=== PATIENT | female | born 1945 | race Caucasian/White ===

== ENCOUNTER → 2016-12-02 | Outpatient (CLI) | payer MEDICARE, OTHER | END | disposition home or self-care (01) | LOC: PCVCIMAG 10:14 | PROVIDERS: ATTEND Internal Medicine Cardiovascular Disease | DX: I65.23 Occlusion and stenosis of bilateral carotid arteries (principal); I25.10 Atherosclerotic heart disease of native coronary artery without angina pectoris; R42 Dizziness and giddiness; I25.5 Ischemic cardiomyopathy; I10 Essential (primary) hypertension; E78.00 Pure hypercholesterolemia, unspecified; J44.9 Chronic obstructive pulmonary disease, unspecified; R53.1 Weakness; R07.9 Chest pain, unspecified | CPT/HCPCS: 36415; 80061; 93005; 93880; G0463 ==

== ENCOUNTER → 2016-12-13 | Outpatient (CLI) | payer OTHER ==
[~2016-12-13] MED LIST: REGADENOSON 0.4 MG/5 ML DISP.SYRIN. IV ONE
== END | disposition home or self-care (01) ==
LOC: PCVCIMAG 09:02
PROVIDERS: ATTEND Internal Medicine Cardiovascular Disease
DX: I25.10 Atherosclerotic heart disease of native coronary artery without angina pectoris (principal); R07.9 Chest pain, unspecified; J44.9 Chronic obstructive pulmonary disease, unspecified; R94.31 Abnormal electrocardiogram [ECG] [EKG]; Z95.5 Presence of coronary angioplasty implant and graft
CPT/HCPCS: 78452; 93017; A9500; J2785

== ENCOUNTER → 2016-12-23 | Outpatient (CLI) | payer OTHER ==
[~2016-12-23] MED LIST changes: +0.9 % SODIUM CHLORIDE 10 ML VIAL ONE; +CEFAZOLIN 2GM PREMIX 0 ML IV ONE; +DIAZEPAM 10 MG TABLET. ONE; +FENTANYL PF 100 MCG/2 ML VIAL. ONE; +HYDROCODONE/APAP 5/325MG TABLET. ONE; +IOHEXOL 300 MG/ML 100ML VIAL. ONE; +IOHEXOL 350 MG/ML 100ML VIAL. ONE; +IV NORMAL SALINE 1000ML BAG 1,000 ML ONE; +LIDOCAINE 1% Multi-Dose 20 ML VIAL. ONE; +MIDAZOLAM HCL/PF 2 MG/2 ML VIAL. ONE; -REGADENOSON 0.4 MG/5 ML DISP.SYRIN. IV ONE; +hydrALAZINE 20 MG/ML VIAL. ONE
== END | disposition home or self-care (01) ==
LOC: PCVCINTER 12:01
PROVIDERS: ATTEND Nuclear Medicine Nuclear Cardiology
DX: I65.22 Occlusion and stenosis of left carotid artery (principal); I72.0 Aneurysm of carotid artery; I70.1 Atherosclerosis of renal artery; T82.898D Other specified complication of vascular prosthetic devices, implants and grafts, subsequent encounter
CPT/HCPCS: 36223; 36225; 36252; 75630; 76937; 93458; C1751; C1760; C1769; C1894; J2250; J3010; J7030; Q9967; J0360; J0690

== ENCOUNTER → 2017-03-18 | Outpatient (CLI) | payer OTHER | END | disposition home or self-care (01) | LOC: PCVCCLINIC 13:40 | PROVIDERS: ATTEND Internal Medicine Cardiovascular Disease | DX: I25.10 Atherosclerotic heart disease of native coronary artery without angina pectoris (principal); I10 Essential (primary) hypertension; J44.9 Chronic obstructive pulmonary disease, unspecified; I25.5 Ischemic cardiomyopathy; I77.89 Other specified disorders of arteries and arterioles; E78.00 Pure hypercholesterolemia, unspecified; I25.2 Old myocardial infarction; Z86.79 Personal history of other diseases of the circulatory system; Z95.1 Presence of aortocoronary bypass graft; Z95.5 Presence of coronary angioplasty implant and graft; Z79.82 Long term (current) use of aspirin; Z79.899 Other long term (current) drug therapy; Z88.8 Allergy status to other drugs, medicaments and biological substances | CPT/HCPCS: 80061; 93005; G0463 ==

== ENCOUNTER → 2017-03-23 | Outpatient (CLI) | payer OTHER ==
--- NOTE | 2017-03-23 13:37 | PCVCIMAG ---
APPROVED REPORT Study performed: 03/23/2017 09:59:22 EXAM: Comprehensive 2D, Doppler, and color-flow Echocardiogram Status: routine Other Information Study Quality: Adequate Indications Congestive Heart Failure COPD CAD Cardiomyopathy Ischemic Cardiomyopathy, assess LV function 2D Dimensions IVSd: 10.59 (7-11mm) LVDd: 46.33 mm PWd: 10.53 (7-11mm) LVDs: 32.09 (25-40mm) Left Atrium: 43.29 (27-40mm) Aortic Root: 28.09 mm LV Single Plane 4CH: 25.46 % LV Single Plane 2CH: 40.42 %Medley's LVEF: 32.94 % Volumes Left Atrial Volume (Systole) Single Plane 4CH: 83.75 mLSingle Plane 2CH: 70.96 mL LA ESV Index: 50.00 mL/m2 Aortic Valve AoV Peak Percy.: 1.43 m/s AO Peak Gr.: 8.20 mmHgLVOT Max P.83 mmHg LVOT Max V: 1.21 m/s Mitral Valve E/A Ratio: 0.7 MV Decel. Time: 288.40 ms MV E Max Percy.: 1.04 m/s MV A Percy.: 1.46 m/s MV PHT: 83.64 ms IVRT: 115.34 ms TDI E/Lateral E': 26.00E/Medial E': 22.00 Pulmonary Valve PV Peak Percy.: 1.02 m/sPV Peak Gr.: 4.15 mmHg Pulmonary Vein P Vein S: 0.33 m/sP Vein A: 0.47 m/s P Vein D: 0.46 m/sP Vein A Dur.: 124.6 msec P Vein S/D Ratio: 0.72 Tricuspid Valve TR Peak Percy.: 2.75 m/s TR Peak Gr.: 30.33 mmHg Left Ventricle The left ventricle is normal size. There is normal LV segmental wall motion. There is normal left ventricular wall thickness. Moderately decreased systolic function iwth distal septal and apical akinesis due to previous IA. LVEF is 36%. Grade I - abnormal relaxation pattern. Right Ventricle The right ventricle is normal size. The right ventricular systolic function is normal. Atria Left atrium is moderately dilated. The right atrium size is normal. Aortic Valve The aortic valve is normal in structure. No aortic regurgitation is present. There is no aortic valvular stenosis. Mitral Valve The mitral valve is normal in structure. Mild to moderate mitral regurgitation. No evidence of mitral valve stenosis. Tricuspid Valve The tricuspid valve is normal in structure. Mild tricuspid regurgitation with PAP of 37 mmHg. Pulmonic Valve The pulmonary valve is normal in structure. There is no pulmonic valvular regurgitation. Great Vessels The aortic root is normal in size. IVC is normal in size and collapses with >50% inspiration Pericardium There is no pericardial effusion. <Conclusion> There is normal left ventricular wall thickness. Moderately decreased systolic function iwth distal septal and apical akinesis due to previous IA. LVEF is 36%. Grade I - abnormal relaxation pattern. Left atrium is moderately dilated. The right atrium size is normal. Mild to moderate mitral regurgitation. There is no aortic valvular stenosis. There is no pericardial effusion. Mild tricuspid regurgitation with PAP of 37 mmHg.
== END | disposition home or self-care (01) ==
LOC: PCVCIMAG 09:41
PROVIDERS: ATTEND Internal Medicine Cardiovascular Disease
DX: I08.1 Rheumatic disorders of both mitral and tricuspid valves (principal); I25.10 Atherosclerotic heart disease of native coronary artery without angina pectoris; I25.5 Ischemic cardiomyopathy; J44.9 Chronic obstructive pulmonary disease, unspecified; I11.0 Hypertensive heart disease with heart failure; I50.9 Heart failure, unspecified; E78.00 Pure hypercholesterolemia, unspecified; I77.89 Other specified disorders of arteries and arterioles; Z79.82 Long term (current) use of aspirin
CPT/HCPCS: 93306

== ENCOUNTER → 2017-10-04 | Outpatient (CLI) | payer OTHER | END | disposition home or self-care (01) | LOC: PCVCCLINIC 09:44 | DX: I25.10 Atherosclerotic heart disease of native coronary artery without angina pectoris (principal); I10 Essential (primary) hypertension; I25.5 Ischemic cardiomyopathy; E78.00 Pure hypercholesterolemia, unspecified; I77.9 Disorder of arteries and arterioles, unspecified; I70.1 Atherosclerosis of renal artery; R94.31 Abnormal electrocardiogram [ECG] [EKG]; Z87.891 Personal history of nicotine dependence; Z79.899 Other long term (current) drug therapy | CPT/HCPCS: 80061; 93005; G0463 ==

== ENCOUNTER → 2018-03-30 | Outpatient (CLI) | payer OTHER | END | disposition home or self-care (01) | LOC: PCVCIMAG 08:47 | DX: I65.21 Occlusion and stenosis of right carotid artery (principal); I25.10 Atherosclerotic heart disease of native coronary artery without angina pectoris; I25.5 Ischemic cardiomyopathy; E78.00 Pure hypercholesterolemia, unspecified; I10 Essential (primary) hypertension; J44.9 Chronic obstructive pulmonary disease, unspecified; I67.1 Cerebral aneurysm, nonruptured; I77.9 Disorder of arteries and arterioles, unspecified; I77.89 Other specified disorders of arteries and arterioles; I70.1 Atherosclerosis of renal artery; R94.31 Abnormal electrocardiogram [ECG] [EKG]; Z87.891 Personal history of nicotine dependence; Z79.899 Other long term (current) drug therapy; Z79.82 Long term (current) use of aspirin; Z88.8 Allergy status to other drugs, medicaments and biological substances | CPT/HCPCS: 76770; 80061; 93005; 93880; 93975; G0463 ==

== ENCOUNTER → 2018-07-04 | Outpatient (CLI) | payer OTHER ==
[~2018-07-04] MED LIST changes: -0.9 % SODIUM CHLORIDE 10 ML VIAL ONE; -CEFAZOLIN 2GM PREMIX 0 ML IV ONE; -DIAZEPAM 10 MG TABLET. ONE; -FENTANYL PF 100 MCG/2 ML VIAL. ONE; -HYDROCODONE/APAP 5/325MG TABLET. ONE; -IOHEXOL 300 MG/ML 100ML VIAL. ONE; -IOHEXOL 350 MG/ML 100ML VIAL. ONE; -IV NORMAL SALINE 1000ML BAG 1,000 ML ONE; -LIDOCAINE 1% Multi-Dose 20 ML VIAL. ONE; -MIDAZOLAM HCL/PF 2 MG/2 ML VIAL. ONE; +REGADENOSON 0.4 MG/5 ML DISP.SYRIN. IV ONE; -hydrALAZINE 20 MG/ML VIAL. ONE
--- NOTE | 2018-07-04 15:17 | PCVCIMAG ---
APPROVED REPORT Study performed: 07/04/2018 08:41:12 EXAM: Comprehensive 2D, Doppler, and color-flow Echocardiogram Patient Location: Echo lab Room #: 2Status: routine BSA: 1.70 HR: 79 bpmBP: 116/64 mmHg Rhythm: NSR Other Information Study Quality: Good Risk Factors: Cardiac Risk Factors: Hyperlipidemia Indications COPD CAD Cardiomyopathy 2D Dimensions IVSd: 7.26 (7-11mm)LVOT Diam: 18.58 (18-24mm) LVDd: 46.46 mm PWd: 7.56 (7-11mm)Ascending Ao: 28.76 (22-36mm) LVDs: 31.96 (25-40mm) Left Atrium: 38.75 (27-40mm) Aortic Root: 25.93 mm LV Single Plane 4CH: 48.08 % LV Single Plane 2CH: 46.77 % Biplane EF: 47.8 % Volumes Left Atrial Volume (Systole) Single Plane 4CH: 77.23 mLSingle Plane 2CH: 53.95 mL Biplane LA Volume: 69.00 mLLA ESV Index: 41.00 mL/m2 Aortic Valve AoV Peak Percy.: 1.20 m/s AO Peak Gr.: 5.72 mmHgLVOT Max P.47 mmHg LVOT Max V: 0.93 m/s CASSIE Vmax: 2.11 cm2 Mitral Valve E/A Ratio: 1.1 MV Decel. Time: 150.99 ms MV E Max Percy.: 1.34 m/s MV A Percy.: 1.19 m/s IVRT: 65.74 ms TDI E/Lateral E': 19.14E/Medial E': 26.80 Medial E' Percy.: 0.05 m/s Lateral E' Percy.: 0.07 m/s Pulmonary Valve PV Peak Percy.: 0.92 m/sPV Peak Gr.: 3.36 mmHg Pulmonary Vein P Vein S: 0.63 m/sP Vein A: 0.35 m/s P Vein D: 0.45 m/sP Vein A Dur.: 155.7 msec P Vein S/D Ratio: 1.40 Tricuspid Valve TR Peak Percy.: 3.04 m/s TR Peak Gr.: 36.87 mmHg TV Vmax: 1.66 m/sPA Pressure: 44.00 mmHg Left Ventricle The left ventricle is normal size. There is apical hypokinesis of the left ventricle with mild dilitation. There is normal left ventricular wall thickness. There is no ventricular septal defect visualized. Left ventricular systolic function is mildly decreased. LVEF is 45-50%. Findings suggest the left atrial pressure is elevated. Right Ventricle The right ventricle is normal size. The right ventricular systolic function is normal. Atria Left atrium is mildly dilated. The right atrium size is normal. Aortic Valve The aortic valve is normal in structure. No aortic regurgitation is present. There is no aortic valvular stenosis. Mitral Valve The mitral valve is normal in structure. There is moderate mitral valve regurgitation noted. No evidence of mitral valve stenosis. Tricuspid Valve The tricuspid valve is normal in structure. Moderate tricuspid regurgitation with a PA pressure of 44 mmHg. Moderate pulmonary hypertension. Pulmonic Valve The pulmonary valve is normal in structure. Trace pulmonic regurgitation. Great Vessels The aortic root is normal in size. The ascending aorta is normal in size. IVC is normal in size and collapses >50% with inspiration. Pericardium There is no pericardial effusion. There is no pleural effusion. <Conclusion> The left ventricle is normal size. There is apical hypokinesis of the left ventricle with mild dilitation. Left ventricular systolic function is mildly decreased. LVEF is 45-50%. Findings suggest the left atrial pressure is elevated. Left atrium is mildly dilated. The right atrium size is normal. The aortic valve is normal in structure. There is moderate mitral valve regurgitation noted. Moderate tricuspid regurgitation with a PA pressure of 44 mmHg. Moderate pulmonary hypertension. The aortic root is normal in size. There is no pericardial effusion.
--- NOTE | 2018-07-04 17:17 | PCVCIMAG ---
APPROVED REPORT Imaging Protocol: Rest Tc-99m/Stress Tc-99m 1 day Study performed: 07/04/2018 10:17:37 Indication: CAD , Ischemic Cardiomyopathy Patient Location: Out-Patient Stress Nurse: Nadege Aleman RN [place] Tech:CIELO Moore Ht: 5 ft 0 in Wt: 165 lbs BSA: 1.72 m2 HR: 73 bpm BP: 150/72 mmHg BMI: 32.2 Medical History Medications: ASA, Atorvastatin, Carvedilol, Plavix, [place], Spironolactone, Duoneb, Losartan, Omeprozole, K-Dur, Zantac, Torsemide Allergies: Flu Vaccine, Lisinopril, Shellfish Cardiac Risk Factors: Age, HTN, Hyperlipidemia, Tobacco History (Former), CAD, PVD, Pretest Chest Pain Characteristics: No chest pain Exercise History: Indeterminate Physical Disabilities: Knees - bilateral arthritis Resting Data Rest SPECT myocardial perfusion imaging was performed in supine position 45 minutes following the intravenous injection of 11.5 mCi of Tc-99m Sestamibi. Time of rest injection: 929 Date: 07/04/2018 Administration Route: IV Administration Site: Right Hand Pharmacologic Stress Pharmacologic stress test was performed by injecting Regadenoson 0.4 mg IV push over 10-15 seconds immediately followed by the intravenous injection of 31.2 mCi of Tc-99m Sestamibi. Time of stress injection: 1050 Date: 07/04/2018 Administration Route: IV Administration Site: Right Hand Gated Stress SPECT was performed 45 minutes after stress injection. The images were gated to evaluate regional wall motion and calculate left ventricular ejection fraction. Comments PRIOR 11/2016: OLD INFARCT Stress Test Details Stress Test: Pharmacologic stress was paired with low level exercise. Reason for pharmacologic stress test: Arthritis-Knees. HRMax Heart Rate (APMHR): 147 bpm Resting HR: 73 bpmTarget HR (85% APMHR): 124 bpm Max HR Achieved: 99 bpm % of APMHR: 67 Recovery HR: 87 bpm BP Resting BP: 150/72 mmHg Recovery BP: 158/76 mmHg ECG Resting ECG: Sinus Rhythm Stress ECG: Sinus Rhythm, Sinus Rhythm, NSSTT changes Arrhythmia: None Recovery ECG: Sinus Rhythm Clinical Reason for Termination: Completed protocol Stress Symptoms: Dyspnea Exercise duration: 4 min 00 sec Symptoms resolved with caffeine. Stress ECG Conclusion ECG: Non-ischemic Study Data Post stress, the left ventricular ejection was 61%.. SSS: 22 SRS: 14 SDS: 8 TID = 1.13. 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 Medium sized area of moderate reversible ischemia involving the mid inferolateral left ventricle consistent with a circumflex distribution. Medium sized area of mild reversible ischemia involving the mid anterior left ventricle consistent with a left anterior descending distribution. 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 Medium sized area of moderate reversible ischemia involving the mid inferolateral left ventricle consistent with a circumflex distribution has developed since November 2016. Medium sized area of mild reversible ischemia involving the mid anterior left ventricle consistent with a left anterior descending distribution similar to prior study. Interpreted by: Geremias Page MD Electronically Approved: 07/04/2018 15:09:43 <Conclusion> ECG: Non-ischemic
== END | disposition home or self-care (01) ==
LOC: PCVCIMAG 10:11
PROVIDERS: ATTEND Internal Medicine Cardiovascular Disease
DX: I08.1 Rheumatic disorders of both mitral and tricuspid valves (principal); I25.10 Atherosclerotic heart disease of native coronary artery without angina pectoris; I10 Essential (primary) hypertension; J44.9 Chronic obstructive pulmonary disease, unspecified; I27.20 Pulmonary hypertension, unspecified
CPT/HCPCS: 78452; 93017; 93306; A9500; J2785

== ENCOUNTER → 2018-10-19 | Outpatient (CLI) | payer OTHER | END | disposition home or self-care (01) | LOC: PCVCCLINIC 15:34 | PROVIDERS: ATTEND Internal Medicine Cardiovascular Disease | DX: I25.10 Atherosclerotic heart disease of native coronary artery without angina pectoris (principal); I25.5 Ischemic cardiomyopathy; I10 Essential (primary) hypertension; E78.00 Pure hypercholesterolemia, unspecified; I77.9 Disorder of arteries and arterioles, unspecified; J44.9 Chronic obstructive pulmonary disease, unspecified; R00.0 Tachycardia, unspecified; Z95.5 Presence of coronary angioplasty implant and graft; Z79.82 Long term (current) use of aspirin; Z87.891 Personal history of nicotine dependence | CPT/HCPCS: 36415; 80061; 93005; G0463 ==

== ENCOUNTER → 2019-01-02 | Outpatient (CLI) | payer OTHER ==
--- NOTE | 2019-01-02 09:35 | PCVCIMAG ---
EXAM: BILATERAL CAROTID DUPLEX INDICATION: Carotid Occlusive Disease. Previous left carotid endarterectomy. FINDINGS: Doppler Measurements (centimeters per second): RIGHT: Peak CCA-70, Peak ECA-173, Diastolic ICA-63, Peak ICA-238, ICA/CCA Ratio-3.2. LEFT: Peak CCA-81, Peak ECA-68, Diastolic ICA-28, Peak ICA-86, ICA/CCA Ratio-0.9. RIGHT CAROTID: The carotid bulb has moderate plaque. The proximal internal carotid artery shows 60-70% stenosis. The common carotid artery shows no significant stenosis. The external carotid artery shows 50% stenosis. LEFT CAROTID: The carotid bulb has minimal plaque. The proximal internal carotid artery shows no significant stenosis. The common carotid artery shows no significant stenosis. The external carotid artery shows no significant stenosis. Antegrade flow in both vertebral arteries. IMPRESSION: 60-70% stenosis of the right internal carotid artery with moderate plaque. No significant stenosis of the left internal carotid artery with minimal plaque. No change since March 2018. LOC:[id number]
--- NOTE | 2019-01-02 14:25 | PCVCIMAG ---
APPROVED REPORT Study performed: 01/02/2019 11:08:32 Exam: Stress Echocardiogram Indication: CAD s/p MT, Hypertension, Hyperlipidemia Patient Location: Echo lab Stress Nurse: Nadege Aleman RN Status: routine Ht: 5 ft 0 in HR: 79 bpm BP: 130/70 mmHg Rhythm: NSR Medical History Medical History: CAD s/p MT, CAD s/p stent, Tobacco history (Former), COPD Previous Cardiac Procedures: Myocardial infarction Exercise History: Sedentary Procedure The patient underwent an Exercise Stress Test using the Jerson Protocol. Blood pressure, heart rate, and EKG were monitored. An Echocardiogram was performed by auto body repair technician in four stages in quad fashion. At peak stress, four selected images were obtained and placed side by side with resting images for comparison. Stress Test Details Stress Test: Exercise stress testing was performed using a Jerson protocol. HR Resting HR: 79 bpmMax Heart Rate (APMHR): 147 bpm Max HR Achieved: 109 bpmTarget HR (85% APMHR): 124 bpm % of APMHR: 74 Recovery HR: 84 bpm HR response to stress: Normal HR response to stress BP Resting BP: 130/70 mmHg Max BP: 142/66 mmHg Recovery BP: 136/66 mmHg BP response to stress: Normal blood pressure response to stress. ECG Resting ECG: Sinus Rhythm Stress ECG: Sinus Rhythm Recovery ECG: Sinus Rhythm Clinical Reason for Termination: Maximal effort, Dyspnea Stress Symptoms: Dyspnea Exercise duration: 4 min sec Highest Stage Achieved: Stage 2: 2.5 mph at 12% grade. Exercise capacity: 7.00 METs Overall Exercise Capacity for Age: Poor Pre-Stress Echo The resting Echocardiogram showed abnormal left ventricular contractility with an estimated Ejection Fraction of about 40-45%. Apical akinesis due to previous myocardial infarction. Post-Stress Echo The stress Echocardiogram showed abnormal left ventricular contractility with an estimated Ejection Fraction of about 40-45%. Apical akinesis no new regional wall motion abnormality. Conclusion Clinical Response: Non-ischemic Exercise Capacity: Below Average Stress ECG Response: Non-ischemic Stress Echo Images: Non-ischemic Moderate mitral regurgitation is noted. Other Information Study Quality: Adequate <Conclusion> Moderate mitral regurgitation is noted.
--- NOTE | 2019-01-02 17:21 | PCVCIMAG ---
EXAM: BILATERAL RENAL ULTRASOUND AND BILATERAL RENAL DUPLEX INDICATION: Hypertension FINDINGS: Right kidney: Length measures 10.7 cm. No hydronephrosis or extensive renal scarring. Right renal duplex: Adequate technical quality. No sonographic evidence of renal artery stenosis. The aortic to renal artery ratio is 1.6. The renal vein is patent. Left kidney: Length measures 8.8 cm. No hydronephrosis. Moderate cortical scarring. Left renal duplex: Adequate technical quality. No sonographic evidence of renal artery stenosis. The aortic to renal artery ratio is 3.3. The renal vein is patent. Bladder: No obvious abnormalities. IMPRESSION: No right renal artery stenosis. 70% stenosis proximal left renal artery has shown slight progression since March 2018. Moderate cortical scarring left kidney. LOC:[id number]
== END | disposition home or self-care (01) ==
LOC: PCVCIMAG 09:05
PROVIDERS: ATTEND Internal Medicine Cardiovascular Disease
DX: I65.23 Occlusion and stenosis of bilateral carotid arteries (principal); I34.0 Nonrheumatic mitral (valve) insufficiency; I25.10 Atherosclerotic heart disease of native coronary artery without angina pectoris; I25.2 Old myocardial infarction; I10 Essential (primary) hypertension; E78.5 Hyperlipidemia, unspecified; Z87.891 Personal history of nicotine dependence; Z95.5 Presence of coronary angioplasty implant and graft
CPT/HCPCS: 76770; 93325; 93351; 93880; 93975

== ENCOUNTER → 2019-08-16 | Outpatient (CLI) | payer OTHER | END | disposition home or self-care (01) | LOC: PCVCCLINIC 15:03 | PROVIDERS: ATTEND Internal Medicine Cardiovascular Disease | DX: I25.10 Atherosclerotic heart disease of native coronary artery without angina pectoris (principal); E78.00 Pure hypercholesterolemia, unspecified; I65.23 Occlusion and stenosis of bilateral carotid arteries; I70.1 Atherosclerosis of renal artery; I67.1 Cerebral aneurysm, nonruptured; I25.5 Ischemic cardiomyopathy; I42.9 Cardiomyopathy, unspecified; I10 Essential (primary) hypertension; J44.9 Chronic obstructive pulmonary disease, unspecified; Z79.82 Long term (current) use of aspirin; Z87.891 Personal history of nicotine dependence | CPT/HCPCS: 36415; 80061; 93005; G0463 ==